=== PATIENT | female | born 1990 | race Hispanic/Latino ===

== ENCOUNTER 2016-11-13 20:50 | Emergency (ER) | payer OTHER, BC ==
[2016-11-13 21:41] VITALS: BP 147/92; PULSE 82; RESP 16; TEMP 98; O2SAT 98
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
== END 2016-11-13 22:31 | disposition home or self-care (01) ==
LOC: H.ER 20:50
DX: R51 Headache (principal)